=== PATIENT | male | born 1955 | race Caucasian/White ===

== ENCOUNTER 2017-04-02 18:56 | Inpatient (IN) | payer MEDICAID, OTHER ==
[2017-04-02 19:04] VITALS: BMI 29.1
[2017-04-02 20:46] LABS: BASO # 0.1 K/uL (0.0-0.2); BASO % 1.1 % (0.0-2.0); EOS # 0.8 K/uL (0.0-0.7); EOS % 9.7 % (0.0-4.0); HEMATOCRIT 43.7 % (35.0-51.0); LYMPH # 2.1 K/uL (1.0-4.3); LYMPH % 25.6 % (20.0-40.0); MEAN CELL VOLUME 90.3 fL (80.0-94.0); MEAN CORPUSCULAR HEMOGLOBIN 30.6 pg (27.0-31.0); MEAN CORPUSCULAR HGB CONC 33.9 g/dL (33.0-37.0); MEAN PLATELET VOLUME 7.3 fL (7.2-11.7); MONO # 0.7 K/uL (0.0-0.8); MONO % 8.4 % (0.0-10.0); RED CELL DISTRIBUTION WIDTH 12.9 % (11.5-14.5); WHITE BLOOD COUNT 8.2 K/uL (4.8-10.8)
[2017-04-02 21:01] LABS: CHLORIDE 100 mmol/L (98-107); POTASSIUM 4.2 mmol/L (3.6-5.2); SODIUM 137 mmol/L (132-148)
[2017-04-02 21:03] LABS: ALB/GLOB RATIO 1.2 (1.0-2.1); AST/SGOT 37 U/L (17-59); BILIRUBIN,TOTAL 0.6 mg/dL (0.2-1.3); CARBON DIOXIDE 26 mmol/L (22-30); GFR AFRICAN-AMERICAN > 60; TOTAL PROTEIN 7.9 g/dL (6.3-8.3); URINE BILIRUBIN NEGATIVE (NEGATIVE); URINE BLOOD NEGATIVE (NEGATIVE); URINE COLOR Yellow (YELLOW); URINE GLUCOSE (UA) NORMAL (Normal); URINE KETONE NEGATIVE (NEGATIVE); URINE LEUKOCYTE ESTERASE NEG Leu/uL (Negative); URINE PROTEIN NEGATIVE (NEGATIVE); URINE UROBILINOGEN NORMAL mg/dL (0.2-1.0); WBC URINE < 1 /hpf (0-5)
[2017-04-02 21:04] LABS: ALKALINE PHOSPHATASE 74 U/L (38-126); ALT/SGPT 25 U/L (21-72); BLOOD UREA NITROGEN 26 mg/dL (9-20); CALCIUM 9.3 mg/dl (8.6-10.4); GLUCOSE,RANDOM 82 mg/dL (75-110)
[2017-04-02 21:05] LABS: ALCOHOL SERUM 11 mg/dl (0-10)
--- NOTE | 2017-04-02 21:13 | C.PDOC ---
History Of Present Illness A 61 year old male presents to the ER for EToH and Klonopin detox. Patient notes last use was this morning for both EToH and Klonopin. Patient denies fever , chills, nausea, vomiting, suicidal or homicidal ideation, or any other complaints. Time Seen by Provider: 04/02/17 20:08 Chief Complaint (Nursing): Substance Abuse History Per: Patient History/Exam Limitations: no limitations Onset/Duration Of Symptoms: Hrs Current Symptoms Are (Timing): Still Present Suicide/Self Injury Attempted (Context): None Modifying Factor(s): Alcohol, Other (klonopin) Severity: Mild Associated Symptoms: denies: Suicidal Thoughts, Suicidal Plan Involuntary Hold By: None Recent travel outside of the [place]: No Additional History Per: Patient Past Medical History Reviewed: Historical Data, Nursing Documentation, Vital Signs Vital Signs: Last Vital Signs Temp 98.2 F 04/02/17 19:04 Pulse 96 H 04/02/17 19:04 Resp 18 04/02/17 19:04 BP 94/47 L 04/02/17 19:04 Pulse Ox 94 L 04/02/17 21:16 - Medical History PMH: COPD, HTN - [facility] Procedures SKIN INCIS & FB REMOVAL (08/19/01) Family History: States: Unknown Family Hx - Social History Hx Alcohol Use: Yes Hx Substance Use: Yes - Immunization History Hx Tetanus Toxoid Vaccination: No Hx Influenza Vaccination: No Hx Pneumococcal Vaccination: No Review Of Systems Except As Marked, All Systems Reviewed And Found Negative. Constitutional: Positive for: Other (ETOH intoxication and klonopin use). Negative for: Fever, Chills Gastrointestinal: Negative for: Nausea, Vomiting Psych: Negative for: Suicidal ideation Physical Exam - Physical Exam Appears: Non-toxic, No Acute Distress Skin: Warm, Dry Head: Atraumatic, Normacephalic Eye(s): bilateral: Normal Inspection, EOMI Cardiovascular: Rhythm Regular, No Murmur Respiratory: Normal Breath Sounds, No Rales, No Rhonchi, No Wheezing Gastrointestinal/Abdominal: Soft, No Tenderness Neurological/Psych: Oriented x3, Normal Speech, Other (No focal deficit) ED Course And Treatment - Laboratory Results Result Diagrams: 04/02/17 20:40 04/02/17 20:40 O2 Sat by Pulse Oximetry: 94 (RA) Pulse Ox Interpretation: Normal Medical Decision Making Medical Decision Making: Plans: -Blood labs -UA -Reassess and disposition Pt is medically cleared for detox. accepted to detox Disposition - Disposition Disposition: HOSPITALIZED Disposition Time: 22:56 Condition: STABLE - Clinical Impression Clinical Impression: Benzodiazepine dependence - Scribe Statement The provider has reviewed the documentation as recorded by the Scribe Celestino oconnor All medical record entries made by the Scribe were at my direction and personally dictated by me. I have reviewed the chart and agree that the record accurately reflects my personal performance of the history, physical exam, medical decision making, and the department course for this patient. I have also personally directed, reviewed, and agree with the discharge instructions and disposition. Decision To Admit - Pt Status Changed To: Hospital Disposition Of: Inpatient - Admit Certification Admit to Inpatient:: After my assessment, the patient will require hospitalization for at least two midnights. This is because of the severity of symptoms shown, intensity of services needed, and/or the medical risk in this patient being treated as an outpatient. - InPatient: Physician Admission Certification: I certify that this patient requires 2 or more midnights of care for the following reason:: pt need detox - . Bed Request Type: Detox Admitting Physician: Hema Jimenez Patient Diagnosis: Benzodiazepine dependence
[2017-04-03] MEDS ORDERED: Albuterol HFA 90 mcg/actuation (8 g) INH PRN (09:59)
[2017-04-03] MEDS: Multiple Vitamins Tab PO SCH (11:05)
--- NOTE | 2017-04-03 16:49 | PCM.PSYCH ---
Initial Psychiatric Evaluation - Initial Psychiatric Evaluation Type of Admission: Voluntary Legal Status: Capacity Chief Complaint (in patient's own words): "I need help" History of Present Illness and Precipitating Events: The 61 y/o male, , with 4 children, lives with eldest daughter in [facility], on disability with a history of depression, anxiety, PTSD and seizure disorder. Pt was admitted to detox for benzodiazepine and alcohol abuse. He was told by his daughter that he had to move out by the of this month. Pt was depressed and thought to either go to a hotel and use heroin or go to detox. Pt takes four to six 2mg klonopin pills daily. He drinks a 6 pack of beer and 2 shots of vodka daily. Pt had a beer and took a klonopin before coming to the hospital. Pt has also been shooting heroin 15 days a month. 2 bags per day. He last used heroin 5 days ago. Pt also smokes 1 pack of cigarettes per day and is requesting a nicotine patch. He has been to detox 7 times and rehab 4 times in his lifetime. Pt is concerned that he will have a seizure and . He states that 5 days will not be enough time for him to detox from benzos. He denies homicidal or suicidal ideations, auditory or visual hallucinations or persecutory delusion. Pt states that he is feeling depressed and is willing to try an antidepressant medication. Pt does not have a plan however he is thinking of [facility]. Psych Hx: Anxiety, PTSD, Depression Fam Psych Hx: Mother had anxiety. Daughter has anxiety and eating disorder Fam Drug Hx: 3 of his second cousins from opiate abuse PMH; osteomyelitis, COPD, PAD, HTN, seizures Current Medications: Active Medications Generic Name Dose Route Start Last Admin Trade Name Freq PRN Reason Stop Dose Admin Albuterol 1 puff 04/03/17 09:59 Ventolin Hfa 90 Mcg/Actuation (8 G) INH RQ4 PRN SOB Chlordiazepoxide 25 mg 04/03/17 06:00 04/03/17 11:05 Librium PO 04/07/17 05:59 25 mg Q6 KRISTEN Administration Taper Chlordiazepoxide 25 mg 04/03/17 00:19 04/03/17 09:31 Librium PO 25 mg Q4H PRN Administration Alcohol Withdrawal Clonidine HCl 0.1 mg 05/10/17 00:19 Catapres PO Q8H PRN Symptoms of alcohol withdrawl Folic Acid 1 mg 04/03/17 10:15 04/03/17 11:05 Folic Acid PO 1 mg DAILY KRISTEN Administration Gabapentin 300 mg 04/03/17 10:00 04/03/17 13:32 Neurontin PO 300 mg TID KRISTEN Administration Lisinopril 20 mg 04/03/17 10:00 04/03/17 11:05 Zestril PO 20 mg DAILY KRISTEN Administration Multivitamins 1 tab 04/03/17 10:15 04/03/17 11:05 Hexavitamin PO 1 tab DAILY KRISTEN Administration Nicotine 1 patch 04/03/17 10:45 04/03/17 11:05 Nicoderm Cq TD 1 patch DAILY KRISTEN Administration Pneumococcal Polyvalent Vaccine 0.5 ml 04/06/17 10:00 Pneumovax 23 Vaccine IM 04/06/17 10:01 .ONCE ONE Thiamine HCl 100 mg 04/03/17 10:15 04/03/17 11:05 Vitamin B1 Tab PO 100 mg DAILY KRISTEN Administration Trazodone HCl 100 mg 04/03/17 09:59 Desyrel PO HS PRN Insomnia Past Psychiatric History - Past Psychiatric History Previous Treatment History: None Pertinent Medical Hx (Current Medical&Sleep Prob, Allergies): Allergies Allergy/AdvReac Type Severity Reaction Status Date / Time No Known Allergies Allergy Verified 04/02/17 19:03 Clonazepam [Klonopin] 2 mg PO BID 04/02/17 Lisinopril [Prinivil] 20 mg PO DAILY 04/02/17 Review of Systems - Psychiatric Psychiatric: Abnormal Sleep Pattern, Anxiety, Depression (mild), Panic Attacks. absent: Auditory Hallucinations, Confusion, Hallucinations, Homicidal Ideation , Suicidal Ideation, Visual Hallucinations Mental Status Examination - Personal Presentation Personal Presentation: Looks stated age - Affect Affect: Constricted - Motor Activity Motor Activity: Calm - Reliability in Providing Information Reliability in Providing Information: Good - Speech Speech: Organized - Mood Mood: Depressed, Anxious - Formal Thought Process Formal Thought Process: No Impairment - Cognitive Functions Orientation: Person, Place, Situation, Time Sensorium: Alert Attention/Concentration: Attentive Estimate of Intelligence: Average Judgement: Intact, as evidence by: Insight regarding need for hospitalization Memory: Recent intact, as evidence by: Ability to recall events of the day, Remote intact, as evidenced by: Abilit to recall sig. life events - Risk Risk: Withdrawal, Diminished functioning - Strength & Assets Inventory Strength & Assets Inventory: Cooperative - Limitations Limitations: Living alone DSM 5 DX - DSM 5 DSM 5 Diagnosis: Opiooid withdrawal Opioid use disorder - severe Sedative Hypnotic Disorder Alcohol use disorder Depression - unspecified r/o panic d/o - Recommended/Plan of Treatment Treatment Recommendations and Plan of Treatment: Opioids: -Subutex detox -Support and psychoeducation -As needed medications -Attend groups and activities -[place] and CBT Sedative Hypnotic Disorder: -Librium detox -Gabapentin -Support and psychoeducation -As needed medications -Attend groups and activities -[place] and CBT Alcohol: -Librium detox -Gabapentin -Support and psychoeducation -As needed medications and vitamins -Attend groups and activities -[place] and CBT for abstinence Depressive disorder and panic attacks: -CBT -PsychEducation -Supportive therapy, group therapy, individual therapy -Zoloft 50 mg PO daily 33 min Projected ELOS: 4 days Prognosis: good with treatment Discharge Plan and Discharge Criteria: No wdw sxs refer to IOP or rehab, consider MAT - Smoking Cessation Smoking Cessation Initiated: Yes
[2017-04-04] MEDS: Multiple Vitamins Tab PO SCH (09:20)
--- NOTE | 2017-04-04 09:43 | PCM.PYCHPN ---
Psychiatric Progress Note - Psychiatric Progress Note Patient seen today, length of contact: 16 min Patient Chief Complaint: "I have abnormal stuff going on" Problems Identified/Issues Discussed: The patient is seen, chart reviewed and case discussed. The patient complains of his ongoing fear of seizures and he interprets everything as a sign of seizures such as dizziness or fatigue or some tremors. Psychoeducation given, support given and NC used. Medications adjusted and Keppra started temporarily. Aftercare discussed. He is interested in rehabilitation Overall he is improving. Medication Change: Yes (detox changes daily) Medical Record Reviewed: Yes Mental Status Examination - Cognitive Function Orientation: Person, Place, Situation, Time Memory: Intact Attention: WNL Concentration: Poor Association: WNL Fund of Knowledge: WNL - Mood Mood: Depressed, Anxious - Affect Affect: Constricted - Speech Speech: Appropriate - Formal Thought Process Formal Thought Process: No Impairment - Suicidal Ideation Suicidal Ideation: No - Homicidal Ideation Homicidal Ideation: No Goal/Treatment Plan - Goal/Treatment Plan Need for Continued Stay: Discharge may exacerbated symptoms, Severe functional impairment Progress Toward Problem(s) and Goals/Treatment Plan: Opioids: -Subutex detox -Support and psychoeducation -As needed medications -Attend groups and activities -[place] and CBT Sedative Hypnotic Disorder: -Librium detox -Gabapentin -Support and psychoeducation -As needed medications -Attend groups and activities -[place] and CBT Alcohol: -Librium detox -Gabapentin -Support and psychoeducation -As needed medications and vitamins -Attend groups and activities -[place] and CBT for abstinence Depressive disorder and panic attacks: -CBT -PsychEducation -Supportive therapy, group therapy, individual therapy -Zoloft 50 mg PO daily Estimated Date of D/C: 04/05/17
[2017-04-05] MEDS: Multiple Vitamins Tab PO SCH (09:20)
--- NOTE | 2017-04-05 12:48 | PCM.PYCHPN ---
Psychiatric Progress Note - Psychiatric Progress Note Patient seen today, length of contact: 15 min Patient Chief Complaint: "I am better" Problems Identified/Issues Discussed: The pt is seen, chart reviewed, case discussed with staff. The pt is compliant with medications and reports no side-effects. Symptoms are improving but needs more time to stabilize. After care discussed, will go to [place] but may have to spend a week at home. Relapse prevention discussed. support and psychoeducation given. His opiate use discussed Medication Change: Yes (detox changes daily) Medical Record Reviewed: Yes Mental Status Examination - Cognitive Function Orientation: Person, Place, Situation, Time Memory: Intact Attention: WNL Concentration: Poor Association: WNL Fund of Knowledge: WNL - Mood Mood: Depressed, Anxious - Affect Affect: Constricted - Speech Speech: Appropriate - Formal Thought Process Formal Thought Process: No Impairment - Suicidal Ideation Suicidal Ideation: No - Homicidal Ideation Homicidal Ideation: No Goal/Treatment Plan - Goal/Treatment Plan Need for Continued Stay: Discharge may exacerbated symptoms, Severe functional impairment Progress Toward Problem(s) and Goals/Treatment Plan: Opioids: -Subutex detox -Support and psychoeducation -As needed medications -Attend groups and activities -[place] and CBT Sedative Hypnotic Disorder: -Librium detox -Gabapentin -Support and psychoeducation -As needed medications -Attend groups and activities -[place] and CBT Alcohol: -Librium detox -Gabapentin -Support and psychoeducation -As needed medications and vitamins -Attend groups and activities -[place] and CBT for abstinence Depressive disorder and panic attacks: -CBT -PsychEducation -Supportive therapy, group therapy, individual therapy -Zoloft 50 mg PO daily Estimated Date of D/C: 04/06/17
[2017-04-06] MEDS: Multiple Vitamins Tab PO SCH (09:08)
[2017-04-06] MEDS ORDERED: Pneumococcal 23-Valent Vaccine IM ONE (10:00)
--- NOTE | 2017-04-06 14:37 | PCM.PYCHPN ---
Psychiatric Progress Note - Psychiatric Progress Note Patient seen today, length of contact: 16 min Patient Chief Complaint: "I am depressed" Problems Identified/Issues Discussed: The pt is seen, chart reviewed, case discussed with staff. The pt is compliant with medications and reports no side-effects. Symptoms are improving but needs more time to stabilize. After care discussed, support and psychoeducation given. Medication Change: Yes (add lexapro and inderal) Medical Record Reviewed: Yes Mental Status Examination - Cognitive Function Orientation: Person, Place, Situation, Time Memory: Intact Attention: WNL Concentration: Poor Association: WNL Fund of Knowledge: WNL - Mood Mood: Depressed, Anxious - Affect Affect: Constricted - Speech Speech: Appropriate - Formal Thought Process Formal Thought Process: No Impairment - Suicidal Ideation Suicidal Ideation: No - Homicidal Ideation Homicidal Ideation: No Goal/Treatment Plan - Goal/Treatment Plan Need for Continued Stay: Discharge may exacerbated symptoms, Severe functional impairment Progress Toward Problem(s) and Goals/Treatment Plan: Opioids: -Subutex detox -Support and psychoeducation -As needed medications -Attend groups and activities -[place] and CBT Sedative Hypnotic Disorder: -Librium detox -Gabapentin -Support and psychoeducation -As needed medications -Attend groups and activities -[place] and CBT Alcohol: -Librium detox -Gabapentin -Support and psychoeducation -As needed medications and vitamins -Attend groups and activities -[place] and CBT for abstinence Depressive disorder and panic attacks: -CBT -PsychEducation -Supportive therapy, group therapy, individual therapy -Zoloft 50 mg PO daily Estimated Date of D/C: 04/06/17
[2017-04-07] MEDS: Multiple Vitamins Tab PO SCH (09:54)
--- NOTE | 2017-04-08 01:31 | PCM.PYCHPN ---
Psychiatric Progress Note - Psychiatric Progress Note Patient seen today, length of contact: 17 min Patient Chief Complaint: "I am worried" Problems Identified/Issues Discussed: The pt is seen, chart reviewed, case discussed with staff. The pt is compliant with medications and reports no side-effects. He has concerns about seizure risk after dc, but reassurance helped Symptoms of wdw are improving but needs more time to stabilize. After care discussed, support and psychoeducation given. Medication Change: Yes (detox changes daily) Medical Record Reviewed: Yes Mental Status Examination - Cognitive Function Orientation: Person, Place, Situation, Time Memory: Intact Attention: WNL Concentration: Poor Association: WNL Fund of Knowledge: WNL - Mood Mood: Depressed, Anxious - Affect Affect: Constricted - Speech Speech: Appropriate - Formal Thought Process Formal Thought Process: No Impairment - Suicidal Ideation Suicidal Ideation: No - Homicidal Ideation Homicidal Ideation: No Goal/Treatment Plan - Goal/Treatment Plan Need for Continued Stay: Discharge may exacerbated symptoms, Severe functional impairment Progress Toward Problem(s) and Goals/Treatment Plan: Opioids: -Subutex detox -Support and psychoeducation -As needed medications -Attend groups and activities -[place] and CBT Sedative Hypnotic Disorder: -Librium detox -Gabapentin -Support and psychoeducation -As needed medications -Attend groups and activities -[place] and CBT Alcohol: -Librium detox -Gabapentin -Support and psychoeducation -As needed medications and vitamins -Attend groups and activities -[place] and CBT for abstinence Depressive disorder and panic attacks: -CBT -PsychEducation -Supportive therapy, group therapy, individual therapy -Lexapro Estimated Date of D/C: 04/08/17
[2017-04-08 08:50] VITALS: BP 149/83; PULSE 67; RESP 19; TEMP 98.7; O2SAT 98
--- NOTE | 2017-04-08 08:55 | PCM.PYCHDC ---
Mental Status Examination - Mental Status Examination Orientation: Person, Place, Situation, Time Memory: Impaired Mood: Anxious Affect: Constricted Speech: Appropriate Attention: WNL Concentration: Poor Association: WNL Fund of Knowledge: WNL Formal Thought Process: No Impairment Suicidal Ideation: No Current Homicidal Ideation?: No Discharge Summary - Discharge Note Reason for Hospitalization: Benzo detox Consultations:: List each consultation separately and include: 1. Reason for request. 2. Findings. 3. Follow-up Summary of Hospital Course include:: 1. Description of specific treatment plan utilized for patients during their course of treatmen. 2. Summarize the time- course for resolution of acute symptoms and/or regressed behaviors. 3. Describe issues identified and worked on during hospitalization. 4. Describe medication utilized. 5. Describe medical problems identified and treated. 6. Reassessment of suicide risk Summary of Hospital Course: The 61 y/o male, , with 4 children, lives with eldest daughter in [place], on disability with a history of depression, anxiety, PTSD and seizure disorder. On admission: Pt was admitted to detox for benzodiazepine and alcohol abuse. He was told by his daughter that he had to move out by the of this month. Pt was depressed and thought to either go to a hotel and use heroin or go to detox. Pt takes four to six 2mg klonopin pills daily. He drinks a 6 pack of beer and 2 shots of vodka daily. Pt had a beer and took a klonopin before coming to the hospital. Pt has also been shooting heroin 15 days a month. 2 bags per day. He last used heroin 5 days ago. Pt also smokes 1 pack of cigarettes per day and is requesting a nicotine patch. He has been to detox 7 times and rehab 4 times in his lifetime. Pt is concerned that he will have a seizure and . He states that 5 days will not be enough time for him to detox from benzos. He denies homicidal or suicidal ideations, auditory or visual hallucinations or persecutory delusion. Pt states that he is feeling depressed and is willing to try an antidepressant medication. Pt does not have a plan however he is thinking of going [facility] after discharge. Psych Hx: Anxiety, PTSD, Depression Fam Psych Hx: Mother had anxiety. Daughter has anxiety and eating disorder Fam Drug Hx: 3 of his second cousins from opiate abuse PMH; osteomyelitis, COPD, PAD, HTN, seizures Hospital course: The pt was admitted and started on treatment with psychotherapy, support, psychoeducation and medications. [place] and CBT used. The pt attended groups and activities, as well as milieu therapy. All the risks and benefits of medications are discussed and the patient understood and agreed. After care discussed with the patient. He agreed to go to [place] He was very anxious and also concerned about possible seizures. He is reassured but also put on 2 antiseizure meds, one of which will be stopped in 2-4 weeks ( Keppra) His BP was also elevated a lot, meds started and adjusted. - Final Diagnosis (DSM 5) Condition upon Discharge: STABLE DSM 5: Opiooid withdrawal Opioid use disorder - severe Sedative Hypnotic Disorder Alcohol use disorder Depression - unspecified r/o panic d/o Disposition: HOME/ ROUTINE Follow-up Treatment Plan: Continue below medications after discharge. Follow after care plan as discussed.[facility] rehab See a PCP as soon as possible. Use relapse prevention skills Return to ER or call 911 if suicidal, homicidal or symptoms relapse. Stay away from stress, alcohol and drugs. 31 minutes Prescriptions/Medication Reconciliation: Albuterol HFA [Ventolin HFA 90 mcg/actuation (8 g)] 1 puff INH RQ4 PRN #1 inhaler PRN Reason: SOB Escitalopram [Lexapro] 10 mg PO DAILY #30 tab Gabapentin [Neurontin] 400 mg PO TID #90 cap levETIRAcetam [Keppra] 250 mg PO BID #60 tab Lisinopril [Zestril] 40 mg PO DAILY #30 tab Propranolol [Inderal] 20 mg PO TID #90 tab traZODone [Desyrel] 100 mg PO HS PRN #30 tab PRN Reason: Insomnia
[2017-04-08] MEDS: Multiple Vitamins Tab PO SCH (09:15)
== END 2017-04-08 11:35 | disposition home or self-care (01) | DRG 744 ==
LOC: C.ER 18:56 → C.7D 22:55
PROC: HZ2ZZZZ Detoxification Services for Substance Abuse Treatment (ICD-10-PCS; principal; 2017-04-03)
PROC: HZ42ZZZ Group Counseling for Substance Abuse Treatment, Cognitive-Behavioral (ICD-10-PCS; 2017-04-03)
PROC: HZ32ZZZ Individual Counseling for Substance Abuse Treatment, Cognitive-Behavioral (ICD-10-PCS; 2017-04-03)
PROC: HZ46ZZZ Group Counseling for Substance Abuse Treatment, Psychoeducation (ICD-10-PCS; 2017-04-03)
PROC: HZ36ZZZ Individual Counseling for Substance Abuse Treatment, Psychoeducation (ICD-10-PCS; 2017-04-03)
PROC: HZ59ZZZ Individual Psychotherapy for Substance Abuse Treatment, Supportive (ICD-10-PCS; 2017-04-03)
DX: F11.23 Opioid dependence with withdrawal (principal); J44.9 Chronic obstructive pulmonary disease, unspecified; F13.20 Sedative, hypnotic or anxiolytic dependence, uncomplicated; I10 Essential (primary) hypertension; F10.230 Alcohol dependence with withdrawal, uncomplicated; G40.909 Epilepsy, unspecified, not intractable, without status epilepticus; F32.9 Major depressive disorder, single episode, unspecified; F43.10 Post-traumatic stress disorder, unspecified; F17.210 Nicotine dependence, cigarettes, uncomplicated; Y90.0 Blood alcohol level of less than 20 mg/100 ml; F41.0 Panic disorder [episodic paroxysmal anxiety]